=== PATIENT | male | born 1940 | race Caucasian/White ===

== ENCOUNTER 2022-06-23 20:56 | Inpatient (IN) | payer MEDICARE ==
[~2022-06-23] VITALS: Ht 177.8 cm; Wt 64.4 kg
--- NOTE | 2022-06-23 20:30 | NUR ---
ADMITTED PATIENT 81 YR OLD MALE, ALERT ORIENTED, PRACTICING MD (PRINTING TABLE HAND) TO ACUTE REHAB FROM [facility], DX OF GEN WEAKNESS, KARLOS, ACUTE METABOLIC ENCEPHALOPATHY, WITH HX OF BPH, CAD, PACEMAKER, NSTEMI, HTN, NEUROGENIC BLADDER, CHRONIC ANEMIA, SMALL BOWEL RESECTION 06/02/22, POSITIVE DVT DISTAL L FEMORAL, S/P IVC FILTER AT R GROIN 06/21/[address] ESTRADA, WITH ABDOMINAL HEAL INCISION SITE, POPPED BLISTER ON LEFT DORSAL FOOT. PATIENT HAS CARLTON CATH DUE TO NEUROGENIC BLADDER, CURRENT ON COVID VACC MODERNA, FLU, PNA BUT UNABLE TO REMEMBER THE DATES ON ALL VACCINES. ORIENTED TO ROOM AND CALL LIGHTS, SON AND DAUGHTER IN LAW CAME TO SEE THE PATIENT, CONT TO MONITOR.
[2022-06-23 20:50] VITALS: BP 141/72
[2022-06-23] MEDS ORDERED: MAG HYDROX/AL HYDROX/SIMETH 30 ML LIQUID UDC PO PRN (21:30)
[2022-06-23] MEDS ORDERED: ACETAMINOPHEN 325 MG TABLET PO PRN (21:30)
[2022-06-23] MEDS ORDERED: IBUPROFEN 400 MG TABLET PO PRN (21:30)
[2022-06-23] MEDS ORDERED: REMEDY ESSENTIAL ZINC PASTE 113 GM TOP PRN (21:30)
[2022-06-23] MEDS ORDERED: GABAPENTIN 300 MG CAPSULE PO SCH (22:00)
[2022-06-23] MEDS ORDERED: PHENAZOPYRIDINE HCL 100 MG TABLET PO SCH (22:00)
[2022-06-23] MEDS ORDERED: BETH10TA2 PO (23:06)
[2022-06-23] MEDS ORDERED: POLY17PO4 PO (23:06)
[2022-06-23] MEDS ORDERED: GABA300C PO (23:06)
[2022-06-23] MEDS ORDERED: DUTA0.5C PO (23:06)
[2022-06-23] MEDS ORDERED: PHEN-894 PO (23:06)
[2022-06-23] MEDS ORDERED: ASPI81TA31 PO (23:06)
[2022-06-23] MEDS ORDERED: BENA20TA9 PO (23:06)
[2022-06-23] MEDS ORDERED: MIDO5TAB5 PO (23:06)
[2022-06-23] MEDS ORDERED: DONE5TAB7 PO (23:06)
[2022-06-23] MEDS ORDERED: AMLO5TAB4 PO (23:06)
[2022-06-23] MEDS ORDERED: ACET-2154 PO (23:06)
[2022-06-23] MEDS ORDERED: PANT40TA2 PO (23:06)
[2022-06-23] MEDS ORDERED: BENA10TA74 PO (23:15)
[2022-06-24] MEDS ORDERED: ACETAMINOPHEN 325 MG TABLET PO PRN (03:00)
[2022-06-24 04:00] VITALS: BP 137/68
[2022-06-24] MEDS: PANTOPRAZOLE SODIUM 40 MG TABLET.DR PO SCH (06:18)
[2022-06-24] MEDS ORDERED: PANTOPRAZOLE SODIUM 40 MG TABLET.DR PO SCH (07:00)
[2022-06-24 07:51] VITALS: BP 127/70
[2022-06-24] MEDS ORDERED: BETHANECHOL CHLORIDE 10 MG TABLET PO SCH (09:00)
[2022-06-24] MEDS ORDERED: AMLODIPINE 5 MG TABLET PO SCH ×2 (09:00)
[2022-06-24] MEDS ORDERED: DUTASTERIDE 0.5 MG CAPSULE PO SCH ×2 (09:00)
[2022-06-24] MEDS ORDERED: MIDODRINE HCL 5 MG TABLET PO SCH ×3 (09:00)
[2022-06-24] MEDS ORDERED: ASPIRIN 81 MG TAB.CHEW PO SCH (09:00)
[2022-06-24] MEDS ORDERED: GABAPENTIN 300 MG CAPSULE PO SCH (09:00)
[2022-06-24] MEDS ORDERED: BENAZEPRIL HCL 10 MG TABLET PO SCH (09:00)
[2022-06-24] MEDS ORDERED: CIPROFLOXACIN HCL 250 MG TABLET PO SCH (09:00)
[2022-06-24] MEDS ORDERED: MIRALAX 17 GM POWD.PACK PO SCH ×2 (09:00)
[2022-06-24] MEDS: ASPIRIN 81 MG TAB.CHEW PO SCH (09:26)
[2022-06-24] MEDS: GABAPENTIN 300 MG CAPSULE PO SCH ×3 (09:26→17:28)
[2022-06-24] MEDS: BENAZEPRIL HCL 10 MG TABLET PO SCH (09:28)
[2022-06-24] MEDS: PHENAZOPYRIDINE HCL 100 MG TABLET PO SCH ×3 (09:38→17:28)
[2022-06-24] MEDS: BETHANECHOL CHLORIDE 10 MG TABLET PO SCH ×2 (09:53→14:04)
[2022-06-24] MEDS ORDERED: MIRALAX 17 GM POWD.PACK PO PRN (13:15)
[2022-06-24 15:16] VITALS: BP 111/64
[2022-06-24] MEDS ORDERED: DONEPEZIL 5 MG TABLET PO SCH ×2 (18:00→21:00)
--- NOTE | 2022-06-24 18:20 | NUR ---
Patient remains alert, oriented x 4, not in any form of distress, on room air during the shift. He denies any pain or discomfort. Hull catheter in place and patent. Assisted with his needs promptly. Call light and frequently used items placed within patient's reach.
[2022-06-24 20:00] VITALS: BP 110/62
[2022-06-25 04:00] VITALS: BP 114/63
[2022-06-25] MEDS: PANTOPRAZOLE SODIUM 40 MG TABLET.DR PO SCH (06:04)
--- NOTE | 2022-06-25 07:28 | NUR ---
Patient alert oriented, no complain of pain, assisted with toileting, tolerate well,continent of bowel and almonte draining with yellow color urine, in moderate amount cont to monitor.
[2022-06-25 08:00] VITALS: BP 124/64
[2022-06-25] MEDS: ASPIRIN 81 MG TAB.CHEW PO SCH (09:09)
[2022-06-25] MEDS: GABAPENTIN 300 MG CAPSULE PO SCH ×3 (09:10→17:02)
[2022-06-25] MEDS: BENAZEPRIL HCL 10 MG TABLET PO SCH (09:10)
[2022-06-25] MEDS: PHENAZOPYRIDINE HCL 100 MG TABLET PO SCH ×3 (09:11→17:02)
--- NOTE | 2022-06-25 12:54 | NUR ---
INTERDISCIPLINARY TEAM CONFERENCE
[2022-06-25 15:53] VITALS: BP 114/66
--- NOTE | 2022-06-25 18:34 | NUR ---
Patient remains alert, oriented x 4 during the shift, not in any form of distress, on room air. He denies any pain or discomfort. Hull catheter in place and patent continue on Pyridium as order. Assisted with his needs promptly. Call light and frequently used items placed within patient's reach.
[2022-06-25 20:00] VITALS: BP 110/53
--- NOTE | 2022-06-25 20:00 | NUR ---
NSG:Received Patient alert, oriented x 4,lying on bed. not in any form pain or distress, on room air . Hull catheter in place and patent. Assisted with his needs promptly. Call light and frequently used items placed within patient's reach.
[2022-06-25 21:58] VITALS: BP 110/53
[2022-06-26 04:10] VITALS: BP 110/63
[2022-06-26] MEDS: PANTOPRAZOLE SODIUM 40 MG TABLET.DR PO SCH (06:09)
--- NOTE | 2022-06-26 06:28 | NUR ---
Nsg: Remain calm and cooperative. no c/o pain or discomfort at this time. call light w/in reach. continue plan of care.
[2022-06-26 07:06] LABS: HEMATOCRIT 28.4 % (36.7-47.1); MEAN CORPUSCULAR HEMOGLOBIN 32.1 uug (23.8-33.4); MEAN CORPUSCULAR VOLUME 93.9 fL (73.0-96.2); PLATELET COUNT (AUTO) 279 K/uL (152-348)
[2022-06-26 07:23] LABS: THYROID STIMULATING HORMONE 0.47 mIU/mL (0.358-3.740)
[2022-06-26 07:42] LABS: BILIRUBIN,TOTAL 0.4 mg/dL (0.2-1.0); CREATININE 1.1 mg/dL (0.6-1.3); MAGNESIUM 1.8 mg/dL (1.8-2.4); PHOSPHOROUS 3.4 mg/dL (2.5-4.9); POTASSIUM 3.8 mmol/L (3.5-5.1); TOTAL PROTEIN, SERUM 5.9 g/dL (6.4-8.2)
[2022-06-26 08:00] VITALS: BP 117/66
[2022-06-26] MEDS: ASPIRIN 81 MG TAB.CHEW PO SCH (08:07)
[2022-06-26] MEDS: PHENAZOPYRIDINE HCL 100 MG TABLET PO SCH ×3 (08:08→16:10)
[2022-06-26] MEDS: GABAPENTIN 300 MG CAPSULE PO SCH ×3 (08:08→16:10)
[2022-06-26] MEDS: BENAZEPRIL HCL 10 MG TABLET PO SCH (08:08)
[2022-06-26] MEDS: ENSURE CLEAR 240 ML LIQUID (MIX BERRY) PO SCH (10:30)
--- NOTE | 2022-06-26 10:44 | NUR ---
INDIVIDUALIZED PLAN OF CARE
--- NOTE | 2022-06-26 11:35 | NUR ---
dc folly catheter per md orders
[2022-06-26 16:16] VITALS: BP 105/63
--- NOTE | 2022-06-26 19:15 | NUR ---
Received patient on bed, awake oriented x4, not in respiratory distress, no complaint of pain, safety precautions provided, call light placed within reach.
--- NOTE | 2022-06-27 04:15 | NUR ---
complaint he has no urge to urinate since 7pm, bladder assessed, not distended when palpated, b;ladder scan done measure 458ml, ice pack applied over hypogastric are for 20min.
--- NOTE | 2022-06-27 04:35 | NUR ---
Ice pack applied over hypogastric area for 20 minutes, went to the bathroom , able to urinate with yellow colored urine, but patient state he has no sensation when voiding at this time. Patient back to bed, no discomfort as stated by the patient, claimed he has the urge at this time, bladder scan done 345ml. will continue to monitor for urgency to urinate.
[2022-06-27] MEDS: PANTOPRAZOLE SODIUM 40 MG TABLET.DR PO SCH (06:12)
--- NOTE | 2022-06-27 06:30 | NUR ---
bladder scan done retained 800ml, almonte catheter inserted F-16, drained dark yellow urine, informed Dr Lester, waiting for response, report given to AM shift. Patient not in distress.
[2022-06-27] MEDS: TAMSULOSIN HCL 0.4 MG CAP.SR.24H PO SCH ×2 (08:05→20:33)
[2022-06-27] MEDS: PHENAZOPYRIDINE HCL 100 MG TABLET PO SCH ×3 (08:05→16:09)
[2022-06-27] MEDS: ASPIRIN 81 MG TAB.CHEW PO SCH (08:05)
[2022-06-27] MEDS: GABAPENTIN 300 MG CAPSULE PO SCH ×3 (08:06→16:09)
[2022-06-27] MEDS: BENAZEPRIL HCL 10 MG TABLET PO SCH (08:06)
[2022-06-27] MEDS: ENSURE CLEAR 240 ML LIQUID (MIX BERRY) PO SCH (08:06)
[2022-06-27 08:19] VITALS: BP 115/63
[2022-06-27 16:29] VITALS: BP 117/69
[2022-06-27 20:00] VITALS: BP_SYST 113; BP_SYST 133; BP_DIAS 63; BP_DIAS 65
[2022-06-28 04:28] VITALS: BP 106/60
--- NOTE | 2022-06-28 05:08 | NUR ---
Slept well, no complaint of pain, urine draining freely in the almonte catheter, no discomfort as stated by the patient.
[2022-06-28] MEDS: PANTOPRAZOLE SODIUM 40 MG TABLET.DR PO SCH (05:54)
[2022-06-28 07:45] VITALS: BP 120/64
[2022-06-28] MEDS: TAMSULOSIN HCL 0.4 MG CAP.SR.24H PO SCH ×2 (08:12→20:40)
[2022-06-28] MEDS: ASPIRIN 81 MG TAB.CHEW PO SCH (08:12)
[2022-06-28] MEDS: GABAPENTIN 300 MG CAPSULE PO SCH ×3 (08:12→16:11)
[2022-06-28] MEDS: PHENAZOPYRIDINE HCL 100 MG TABLET PO SCH ×3 (08:12→16:11)
[2022-06-28] MEDS: ENSURE CLEAR 240 ML LIQUID (MIX BERRY) PO SCH (08:13)
[2022-06-28] MEDS: BENAZEPRIL HCL 10 MG TABLET PO SCH (08:13)
[2022-06-28] MEDS: FINASTERIDE 5 MG TABLET PO SCH (08:14)
[2022-06-28 16:32] VITALS: BP 105/62
--- NOTE | 2022-06-28 19:00 | NUR ---
Received patient on bed, awake, not in respiratory distress, no complaint of pain, with Hull catheter draining freely to urobag in dark yellow urine, no complaint of bladder discomfort, safety precautions provided.
[2022-06-28 20:00] VITALS: BP 110/60
[2022-06-29 04:00] VITALS: BP 116/61
--- NOTE | 2022-06-29 05:30 | NUR ---
Slept well, no complaint of bladder discomfort, able to go to the bathroom independently for bowel movement. Hull catheter still in place draining well in dark colored urine. Patient in fair condition.
[2022-06-29] MEDS: PANTOPRAZOLE SODIUM 40 MG TABLET.DR PO SCH (06:16)
[2022-06-29 06:42] LABS: HEMATOCRIT 29.2 % (36.7-47.1); MEAN CORPUSCULAR HEMOGLOBIN 32.7 uug (23.8-33.4); MEAN CORPUSCULAR VOLUME 96.8 fL (73.0-96.2); PLATELET COUNT (AUTO) 256 K/uL (152-348)
[2022-06-29 07:07] LABS: BILIRUBIN,TOTAL 0.6 mg/dL (0.2-1.0); CREATININE 1.3 mg/dL (0.6-1.3); MAGNESIUM 1.9 mg/dL (1.8-2.4); PHOSPHOROUS 3.6 mg/dL (2.5-4.9); TOTAL PROTEIN, SERUM 6.3 g/dL (6.4-8.2)
[2022-06-29 07:18] VITALS: BP 110/64
[2022-06-29] MEDS: FINASTERIDE 5 MG TABLET PO SCH (08:02)
[2022-06-29] MEDS: TAMSULOSIN HCL 0.4 MG CAP.SR.24H PO SCH ×2 (08:02→20:37)
[2022-06-29] MEDS: ASPIRIN 81 MG TAB.CHEW PO SCH (08:03)
[2022-06-29] MEDS: ENSURE CLEAR 240 ML LIQUID (MIX BERRY) PO SCH (08:03)
[2022-06-29] MEDS: GABAPENTIN 300 MG CAPSULE PO SCH ×3 (08:03→16:07)
[2022-06-29] MEDS: BENAZEPRIL HCL 10 MG TABLET PO SCH (08:03)
[2022-06-29 12:00] VITALS: BP 98/55
[2022-06-29 16:00] VITALS: BP 100/57
--- NOTE | 2022-06-29 19:30 | NUR ---
Received pt awake, alert and orientedx4. Pt in no acute distress.Hull catheter intact and draining well. Safety and comfort provided. Will continue to monitor.
[2022-06-29 20:08] VITALS: BP 105/55
[2022-06-30 04:00] VITALS: BP 107/56
--- NOTE | 2022-06-30 05:30 | NUR ---
Pt slept comfortably. Pt in no acute distress. Hull catheter intact and draining tea colored urine. Prescribed medication given and pt tolerated it well.Vital signs within normal limit. All needs are met. Safety and comfort provided. Will endorse to incoming nurse for continuity of care.
[2022-06-30] MEDS: PANTOPRAZOLE SODIUM 40 MG TABLET.DR PO SCH (06:14)
[2022-06-30 07:50] VITALS: BP 115/59
[2022-06-30] MEDS: FINASTERIDE 5 MG TABLET PO SCH (08:06)
[2022-06-30] MEDS: ASPIRIN 81 MG TAB.CHEW PO SCH (08:06)
[2022-06-30] MEDS: ENSURE CLEAR 240 ML LIQUID (MIX BERRY) PO SCH (08:07)
[2022-06-30] MEDS: BENAZEPRIL HCL 10 MG TABLET PO SCH (08:07)
[2022-06-30] MEDS: GABAPENTIN 300 MG CAPSULE PO SCH ×3 (08:07→16:20)
[2022-06-30] MEDS: TAMSULOSIN HCL 0.4 MG CAP.SR.24H PO SCH ×2 (08:07→20:31)
[2022-06-30 16:06] VITALS: BP 101/56
[2022-06-30 20:08] VITALS: BP 115/62
[2022-07-01 04:12] VITALS: BP 105/59
[2022-07-01] MEDS: PANTOPRAZOLE SODIUM 40 MG TABLET.DR PO SCH (06:09)
[2022-07-01 08:17] VITALS: BP 117/66
[2022-07-01] MEDS: ASPIRIN 81 MG TAB.CHEW PO SCH (09:14)
[2022-07-01] MEDS: GABAPENTIN 300 MG CAPSULE PO SCH ×3 (09:14→17:02)
[2022-07-01] MEDS: BENAZEPRIL HCL 10 MG TABLET PO SCH (09:14)
[2022-07-01] MEDS: FINASTERIDE 5 MG TABLET PO SCH (09:14)
[2022-07-01] MEDS: TAMSULOSIN HCL 0.4 MG CAP.SR.24H PO SCH ×2 (09:14→20:19)
--- NOTE | 2022-07-01 09:30 | NUR ---
CARLTON CATH REMOVED ORDERED AND PATIENT INSTRUCTED TO VOID IN THE URINAL AND TO NOTIFY ME WHEN EVER HE VOIDS TO ENSURE THAT WE ARE KEEPING TRACK OF HIS VOIDING.
[2022-07-01] MEDS: ENSURE CLEAR 240 ML LIQUID (MIX BERRY) PO SCH (09:45)
--- NOTE | 2022-07-01 15:49 | NUR ---
PATIENT VOIDED 350ML OF YELLOW URINE IN THE URINAL WILL CONTINUE TO OBSERVE.
[2022-07-01] MEDS: ENSURE ENLIVE (VAN) 240 ML LIQUID PO SCH (15:56)
[2022-07-01 16:39] VITALS: BP 108/73
--- NOTE | 2022-07-01 18:00 | NUR ---
PATIENT VOIDED X2 250 AND 200 RESPECTIVELY BLADDER SCAN DONE AND PATIENT HAS [address] LONGORIA NOTED WITH ORDERS WILL CONTINUE TO OBSERVE.
[2022-07-01 20:24] VITALS: BP 101/48
--- NOTE | 2022-07-02 05:19 | NUR ---
Pt slept throughout the night. Able to ambulate without assistance. No distress noted. Safety maintained throughout the shift. Will endorse to day shift.
[2022-07-02] MEDS: PANTOPRAZOLE SODIUM 40 MG TABLET.DR PO SCH (06:09)
[2022-07-02 06:48] VITALS: BP 128/60
[2022-07-02 06:53] VITALS: BP 128/60
[2022-07-02 07:56] VITALS: BP 122/65
[2022-07-02] MEDS: GABAPENTIN 300 MG CAPSULE PO SCH ×3 (08:58→16:47)
[2022-07-02] MEDS: ASPIRIN 81 MG TAB.CHEW PO SCH (08:58)
[2022-07-02] MEDS: FINASTERIDE 5 MG TABLET PO SCH (08:58)
[2022-07-02] MEDS: BENAZEPRIL HCL 10 MG TABLET PO SCH (08:59)
[2022-07-02] MEDS: ENSURE ENLIVE (VAN) 240 ML LIQUID PO SCH (09:27)
--- NOTE | 2022-07-02 09:27 | NUR ---
PATIENT SEEN AND EXAMINED BY DR LONGORIA WITH ORDER TO CHECK POST VOID RESIDUAL AGAIN AND TO SEND URINE FOR UA AND NOTED PATIENT IS AWARE
[2022-07-02 13:19] LABS: *BILIRUBIN,URIN NEGATIVE (NEGATIVE); *BLOOD, URINE NEGATIVE (NEGATIVE); *CLARITY,URINE CLEAR (CLEAR); *COLOR,URINE YELLOW (YELLOW); *KETONES,URINE NEGATIVE (NEGATIVE); *UROBILINOGEN,URINE 0.2 E.U./dl (NORMAL); LEUKOCYTE ESTERASE ,URINE NEGATIVE (NEGATIVE); NITRITE, URINE NEGATIVE (NEGATIVE); UGLUCOSE NEGATIVE (NEGATIVE)
--- NOTE | 2022-07-02 15:18 | NUR ---
INTERDISCIPLINARY TEAM CONFERENCE
[2022-07-02 15:45] VITALS: BP 106/63
--- NOTE | 2022-07-02 18:21 | NUR ---
POST VOID RESIDUAL IS 200 STATED FEELS COMFORTABLE WILL NOTIFY DR LONGORIA WILL CONTINUE TO OBSERVE.
[2022-07-02 20:00] VITALS: BP 113/60
[2022-07-02] MEDS: TAMSULOSIN HCL 0.4 MG CAP.SR.24H PO SCH (21:06)
--- NOTE | 2022-07-02 23:00 | NUR ---
VOIDED 150 ML. POST VOID RESIDUAL IS 700 ML. PT HAS DISTENDED BLADDER. REINSERTED CARLTON PER MD ORDER. OUTPUT WAS 850 ML. WILL CONTINUE TO MONITOR.
[2022-07-03 04:00] VITALS: BP 113/64
[2022-07-03] MEDS: PANTOPRAZOLE SODIUM 40 MG TABLET.DR PO SCH (06:11)
[2022-07-03 08:00] VITALS: BP 116/65
[2022-07-03] MEDS: ENSURE ENLIVE (VAN) 240 ML LIQUID PO SCH (08:00)
[2022-07-03] MEDS: BENAZEPRIL HCL 10 MG TABLET PO SCH (08:00)
[2022-07-03] MEDS: ASPIRIN 81 MG TAB.CHEW PO SCH (08:00)
[2022-07-03] MEDS: FINASTERIDE 5 MG TABLET PO SCH (08:00)
[2022-07-03] MEDS: GABAPENTIN 300 MG CAPSULE PO SCH ×3 (08:00→16:39)
[2022-07-03 16:00] VITALS: BP 97/47
[2022-07-03 20:00] VITALS: BP 104/55
[2022-07-03] MEDS: TAMSULOSIN HCL 0.4 MG CAP.SR.24H PO SCH (20:47)
[2022-07-04 04:00] VITALS: BP 121/61
[2022-07-04] MEDS: PANTOPRAZOLE SODIUM 40 MG TABLET.DR PO SCH (06:14)
[2022-07-04 08:07] VITALS: BP 127/67
[2022-07-04] MEDS: ASPIRIN 81 MG TAB.CHEW PO SCH (08:11)
[2022-07-04] MEDS: BENAZEPRIL HCL 10 MG TABLET PO SCH (08:11)
[2022-07-04] MEDS: ENSURE ENLIVE (VAN) 240 ML LIQUID PO SCH (08:11)
[2022-07-04] MEDS: GABAPENTIN 300 MG CAPSULE PO SCH ×3 (08:11→16:15)
[2022-07-04] MEDS: FINASTERIDE 5 MG TABLET PO SCH (08:11)
[2022-07-04 15:46] VITALS: BP 110/62
[2022-07-04 20:00] VITALS: BP 101/55
[2022-07-04] MEDS: TAMSULOSIN HCL 0.4 MG CAP.SR.24H PO SCH (20:20)
[2022-07-05 04:00] VITALS: BP 112/52
[2022-07-05] MEDS: PANTOPRAZOLE SODIUM 40 MG TABLET.DR PO SCH (06:21)
[2022-07-05 07:31] VITALS: BP 114/68
[2022-07-05 08:02] VITALS: BP 112/52
[2022-07-05] MEDS: FINASTERIDE 5 MG TABLET PO SCH (08:02)
[2022-07-05] MEDS: BENAZEPRIL HCL 10 MG TABLET PO SCH (08:02)
[2022-07-05] MEDS: ASPIRIN 81 MG TAB.CHEW PO SCH (08:02)
[2022-07-05] MEDS: ENSURE ENLIVE (VAN) 240 ML LIQUID PO SCH (08:02)
[2022-07-05] MEDS: GABAPENTIN 300 MG CAPSULE PO SCH ×2 (08:02→12:09)
--- NOTE | 2022-07-05 13:47 | NUR ---
dc orders received noted and carried out,dc instruction given to the pt and his son .pt said he will follow up with his pcp and urologist .pt left the facility via private car in stable condition
== END 2022-07-05 14:00 | disposition home health service (06) | DRG 70 ==
PROVIDERS: ADMIT Physical Medicine & Rehabilitation Pain Medicine; ATTEND Physical Medicine & Rehabilitation Pain Medicine
DX: G93.41 Metabolic encephalopathy (principal); I21.4 Non-ST elevation (NSTEMI) myocardial infarction; N17.9 Acute kidney failure, unspecified; N13.30 Unspecified hydronephrosis; E44.0 Moderate protein-calorie malnutrition; E87.2 Acidosis; R18.8 Other ascites; I82.412 Acute embolism and thrombosis of left femoral vein; R53.1 Weakness; D63.8 Anemia in other chronic diseases classified elsewhere; I25.10 Atherosclerotic heart disease of native coronary artery without angina pectoris; Z95.0 Presence of cardiac pacemaker; Z95.828 Presence of other vascular implants and grafts; I07.1 Rheumatic tricuspid insufficiency; E88.09 Other disorders of plasma-protein metabolism, not elsewhere classified; I27.20 Pulmonary hypertension, unspecified; I11.9 Hypertensive heart disease without heart failure; N40.1 Benign prostatic hyperplasia with lower urinary tract symptoms; N43.3 Hydrocele, unspecified; N31.9 Neuromuscular dysfunction of bladder, unspecified; R33.8 Other retention of urine; Z86.718 Personal history of other venous thrombosis and embolism; Z90.49 Acquired absence of other specified parts of digestive tract; Z98.0 Intestinal bypass and anastomosis status; G31.84 Mild cognitive impairment of uncertain or unknown etiology; N44.2 Benign cyst of testis
CPT/HCPCS: 36415; 83735; 84100; 84443; 85025; 97161; 97535-GO-CO; A4663